=== PATIENT | male | born 1995 | race Caucasian/White ===

== ENCOUNTER 2016-11-28 14:55 | Emergency (ER) | payer OTHER ==
[~2016-11-28] VITALS: Ht 198.1 cm; Wt 108.9 kg
[2016-11-28] MEDS ORDERED: KETOROLAC TROMETH 60MG/2ML VIAL IM ONE (16:30)
[2016-11-28] MEDS ORDERED: ONDANSETRON HCL 4 MG/2 ML VIAL IV ONE (16:30)
[2016-11-28] MEDS ORDERED: KETOROLAC TROMETH 30 MG/ML 1ML VIAL IV ONE (16:30)
[2016-11-28] MEDS ORDERED: MORPHINE SULFATE 4 MG/ML SYRG IV ONE (16:30)
[2016-11-28 17:18] VITALS: BP 144/71
== END 2016-11-28 17:30 | disposition home or self-care (01) ==
LOC: EDBD 14:55 → ER 15:04
DX: S46.911A Strain of unspecified muscle, fascia and tendon at shoulder and upper arm level, right arm, initial encounter (principal); S29.019A Strain of muscle and tendon of unspecified wall of thorax, initial encounter; S06.9X9A Unspecified intracranial injury with loss of consciousness of unspecified duration, initial encounter; V86.59XA Driver of other special all-terrain or other off-road motor vehicle injured in nontraffic accident, initial encounter; Y93.89 Activity, other specified; Y99.8 Other external cause status; Y92.89 Other specified places as the place of occurrence of the external cause
CPT/HCPCS: 29105; 70450; 71101; 73030; 96374; 96375; 99284; J2270; J2405

== ENCOUNTER 2017-10-08 09:59 | Emergency (ER) | payer OTHER ==
[~2017-10-08] VITALS: Ht 198.1 cm; Wt 111.1 kg
[2017-10-08 10:07] VITALS: BP 143/80
[2017-10-08] MEDS ORDERED: LIDOCAINE 1% HCL (LOCAL ANESTH.) INJ 20ML MDV IN ONE (10:45)
== END 2017-10-08 11:07 | disposition home or self-care (01) ==
LOC: ER 09:59
DX: S51.811A Laceration without foreign body of right forearm, initial encounter (principal); W26.0XXA Contact with knife, initial encounter; Y93.89 Activity, other specified; Y99.8 Other external cause status; Y92.89 Other specified places as the place of occurrence of the external cause
CPT/HCPCS: 12002